=== PATIENT | female | born 1975 | race Caucasian/White ===

== ENCOUNTER → 2018-08-27 | Outpatient (CLI) | payer MEDICAID, SELFPAY ==
[2015-02-27 13:45] VITALS: BMI 48.2
[2018-08-27 18:14] LABS: Amphetamine Urine VISTA NEGATIVE (<1000 ng/mL); Barbiturate Urine VISTA NEGATIVE (< 200 ng/mL); Benzodiazepine Urine VISTA NEGATIVE (< 200 ng/mL); Cocaine Urine VISTA NEGATIVE (< 300 ng/mL); Ecstacy Urine VISTA NEGATIVE (< 500 ng/mL); Methadone Urine VISTA NEGATIVE (< 300 ng/mL); PCP Urine VISTA NEGATIVE (< 25 ng/mL); THC Urine VISTA POSITIVE (< 50 ng/mL); Vista UDS pH Range 6
== END | disposition home or self-care (01) ==
PROVIDERS: Family Provider Internal Medicine; PCP Internal Medicine; Referring Provider Psychiatry & Neurology Psychiatry; Visit Provider Psychiatry & Neurology Psychiatry
DX: F19.10 Other psychoactive substance abuse, uncomplicated (principal); Z79.899 Other long term (current) drug therapy
CPT/HCPCS: 80307

== ENCOUNTER 2020-03-09 15:17 | Emergency (ER) | payer MEDICAID, SELFPAY ==
[2020-03-09 15:18] VITALS: BP 129/94; PULSE 94; RESP 16; TEMP 36.1; O2SAT 97; BMI 42.6
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
--- NOTE | 2020-03-09 15:43 | EKG12_ITS ---
Test Reason : MEDICAL CLEARANCE Blood Pressure : / mmHG Vent. Rate : 081 BPM Atrial Rate : 081 BPM P-R Int : 124 ms QRS Dur : 078 ms QT Int : 380 ms P-R-T Axes : -03 035 006 degrees QTc Int : 441 ms Normal sinus rhythm Low voltage QRS Borderline ECG Confirmed by REUBEN CLARK, KIRILL ([id number]), editor book IRENA SYKES ([id number]) on 03/10/2020 1:52:41 PM Referred By: LIMA Confirmed By:KIRILL ALEXIS MD
--- NOTE | 2020-03-09 15:43 | RAD_ITS ---
STUDY: X-RAY CHEST REASON FOR EXAM: Female, 44 years old. Medical clearance, history of asthma. TECHNIQUE: Single AP portable view of the chest. COMPARISON: None. FINDINGS: The lungs are clear and expanded. There is no demonstrated pleural abnormality. Normal size heart. Normal mediastinum and tony. Normal visualized pulmonary arteries. Normal visualized aortic arch and descending thoracic aorta. Normal visualized thoracic spine. Normal visualized ribs, clavicles, and shoulders. There is no demonstrated abnormality of the visualized soft tissue structures of the upper abdomen. RAD/Chest 1 View (Portable) IMPRESSION: Normal x-ray examination of the chest. Electronically Signed: Laith Madsen MD at 16:52 EST , Service support ,
[2020-03-09 16:09] LABS: Amphetamine Urine VISTA NEGATIVE (<1000 ng/mL); Barbiturate Urine VISTA NEGATIVE (< 200 ng/mL); Benzodiazepine Urine VISTA NEGATIVE (< 200 ng/mL); Cocaine Urine VISTA NEGATIVE (< 300 ng/mL); Ecstacy Urine VISTA NEGATIVE (< 500 ng/mL); Methadone Urine VISTA NEGATIVE (< 300 ng/mL); PCP Urine VISTA NEGATIVE (< 25 ng/mL); THC Urine VISTA POSITIVE (< 50 ng/mL); Vista UDS pH Range 6
[2020-03-09 16:22] LABS: Anion Gap 5 (5-15); BUN 5 mg/dL (7-18); BUN/Creat Ratio 7.3 RATIO (10-20); Calcium,Total 8.8 mg/dL (8.5-10.1); Chloride 108 mmol/L (98-107); Creatinine, Serum 0.69 mg/dL (0.55-1.02); EST Glomerular Filtration Rate 99 mL/min (>60); Est Glom Filt Rate - Afr Amer 120 mL/min (>60); Estimated Creatinine Clearance 102.23 ml/min; Glucose 109 mg/dL (74-106); Potassium 3.5 mmol/L (3.5-5.1); Sodium Level 142 mmol/L (136-145)
[2020-03-09 16:24] LABS: Absolute Lymphocyte Count 1.28 X10^3/uL (0.83-4.51); Absolute Neutrophil Count 4.9 X10^3/uL (2.0-7.7); Basophil# 0.03 X10^3/uL; Basophil% 0.4 % (0-1); Eosinophil# 0.08 X10^3/uL; Eosinophils% 1.2 % (0-5); Hematocrit 48.1 % (37-47); Hemoglobin 15.7 g/dL (12.0-15.0); Lymphocyte # 1.28 X10^3/ul (4.0); Mean Corp Hgb Conc 32.6 g/dL (32-36); Mean Corpuscular Hgb 34.4 pg (27.0-32.0); Mean Corpuscular Volume 105.3 fL (81-99); Mean Platelet Vol. 9.6 fl (6.2-12.0); Monocyte# 0.37 X10^3/uL; Monocyte% 5.5 % (0-10); NRBC Flagged by Analyzer 0 % (0-5); Neutrophil # 4.94 X10^3/uL (2.7-7.7); Neutrophil % 73.6 % (47-70); Platelet Count 263 K/mm3 (150-450); RBC Distribution Width CV 14.2 % (11.6-14.6); RBC Distribution Width SD 55.3 fl (35.1-43.9); Red Blood Count 4.57 M/mm3 (4.2-5.4); White Blood Count 6.7 K/mm3 (4.4-11.0)
[2020-03-09 17:21] LABS: Probe Check PASS; Specimen Processing Control PASS
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
[2020-03-09 17:42] LABS: Acetaminophen (Tylenol) Level < 2.0 ug/mL (10.0-30.0); Salicylate 3.1 mg/dL (2.8-20.0)
[2020-03-09 17:55] VITALS: BP 138/109; PULSE 87; RESP 16
[2020-03-09 20:06] LABS: Internal QC Validated? YES +Cl - CLEAR BKGD; Pregnancy, Serum, hCG Quali. NEGATIVE Negative
--- NOTE | 2020-03-10 13:01 | CM.ED ---
Social Work Telephone call to follow up with patient. No answer. Voicemail left. Kennedy WARNER, LUIS
--- NOTE | 2020-03-10 14:20 | CM.ED ---
Social Work Telephone call received from patient. Patient reports to have attended the Behavioral Health intake appointment today at 1:00 and it went well. Patient reports plan to start program on Sunday. Patient denies any current concerns/needs. Kennedy WARNER, LUIS
== END 2020-03-09 17:55 | disposition home or self-care (01) ==
PROVIDERS: Emergency Provider Student in an Organized Health Care Education/Training Program; PCP Internal Medicine
DX: R45.851 Suicidal ideations (principal); F12.10 Cannabis abuse, uncomplicated; F32.9 Major depressive disorder, single episode, unspecified; Z91.5 Personal history of self-harm; J45.909 Unspecified asthma, uncomplicated; Z79.899 Other long term (current) drug therapy; F17.200 Nicotine dependence, unspecified, uncomplicated
CPT/HCPCS: 71045; 80048; 80307; 80320; 80329; 84703; 85025; 87635; 93005; 99285; G0480; U0002

== ENCOUNTER 2020-03-25 09:57 | Outpatient (RCR) | payer MEDICAID, SELFPAY ==
--- NOTE | 2020-03-25 09:05 | BH.SGPN.GN ---
Behaviors/Verbalizations/Mental Status: [] Eye contact is good. Motor activity is appropriate. Appearance is casual. Speech is Appropriate. Mood is anxious. Affect is congruent. Thoughts are linear and logical. No evidence of psychosis. Reviewed daily check in sheet and no reports of suicidal ideations or intent. Client Response/Progress/Benefit: [] Pt was an active participant in group discussion. This was pt's first day in the program. She shared that she entered IOP to help with depression and anxiety. Briefly discussed her recent struggles. Attentive and provided feedback to peers. No progress noted as this was pt's first day in IOP. Will continue in IOP to maintain safety, increase healthy coping, and to stabilize mood. Narrative Note: []
--- NOTE | 2020-03-25 10:00 | BH.SGPN.GN ---
Behaviors/Verbalizations/Mental Status: []Client alert and oriented, casually dressed and groomed. Eye contact good. Motor activity restless. Speech within normal limits. Affect constricted, mood anxious and dysthymic. Thoughts linear, logical, no signs of hallucinations or delusions. Client Response/Progress/Benefit: []Client was quiet during larger group discussion, but participating in small group discussion. Client contributed to the discussion of self-care and the consequences of not practicing self-care. Client defined self-care as a ?priority? in life. Group discussed consequences of not practicing self-care such as: ?downward spiral?, burnout, emotional exhaustion, and poor health. Client participated in the discussion of the common myths about self-care and participated in the discussion on debunking of these myths. Client?s group challenged the myths that self-care is too costly and it should always be fun. Client reports ?sometimes self-care means setting yourself straight.? Client seemed to benefit from increased awareness of the importance of self-care and challenging common myths that prevent practicing self-care. Will continue IOP tx to prevent decompensation, improve mood stability, and increase distress tolerance. Narrative Note: []
--- NOTE | 2020-03-29 13:27 | BH.COMM ---
Communication Note - Communication with Client Communication Note: Called in this AM stating that her ride has not been able to wake up and get her to group. Asked if we could arrange transportation. Call to [facility] transportation to arrange schedule. Unable to get her to group consistently until 04/06/20. Pt aware and will miss this week of groups including appointment with psychiatrist. Plan to start back into IOP on 04/06/20
--- NOTE | 2020-04-06 09:05 | BH.SGPN.GN ---
Behaviors/Verbalizations/Mental Status: [] Eye contact is poor. Motor activity is appropriate. Appearance is disheveled. Speech is Appropriate. Mood is depressed. Affect is flat. Thoughts are linear and logical. No evidence of psychosis. Reviewed daily check in sheet and pt reports 5/5 for suicidal thoughts and 4/5 for intent. Therapist noticed and will meet with patient. Client Response/Progress/Benefit: [] Pt was attentive during group however did not participated. She choose not to check-in with the group. Limited benefit noted. Will continue in IOP to maintain safety, increase health coping, prevent decompensation, and stabilize mood. Due to reports of SI therapist will meet with patient after the group to process and to perform risk assessment. Narrative Note: []
--- NOTE | 2020-04-06 11:07 | BH.SGPN.GN ---
Behaviors/Verbalizations/Mental Status: []Client alert and oriented, casual dressed and groomed. Eye contact good. Motor activity restless-rubbing legs. Speech within normal limits. Affect flat, mood dysthymic. Thoughts linear, logical, no signs of hallucinations or delusions. Client Response/Progress/Benefit: []Client responded well to session AEB client listening attentively to others and providing some input during group discussion on the pay offs and costs of the different communication styles. Attentive during psychoeducation on assertiveness strategies to improve communication, and client selected an assertiveness skill to practice. Client selected the skill be mindful by remembering the objective of the interaction. Client selected this skill as client shared ?I often get in arguments and I don?t know why.? Client seemed to benefit from increasing awareness of healthy strategies to improve communication. Will continue IOP tx to prevent decompensation, maintain safety, and learn healthy coping skills. Narrative Note: []
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
--- NOTE | 2020-04-06 14:41 | BH.MTP_ITS ---
[facility] Treatment Plan - Patient Information Program Physician:: Marisela Laboy Primary Therapist:: Yonny Pabon - Psychiatric Diagnoses Psychiatric Diagnoses:: Schizoaffective disorder, depressed type. anxiety disorder, NOS;. history of PTSD. Diagnosis Code(s):: (F 25.1) - Estimated LOS Estimated LOS (in weeks):: 8 Problem/Goal #1 - Problem/Goal #1 Stated Goal:: Client will increase mood stability and decrease depressive symptoms, hopelessness, and suicidal ideation due to Shizoaffective D/O through Intensive Outpatient Program. Description of Barriers: unhealthy relationship, limited coping skills, hx of non-compliance with counseling Functional Impact: Depressive symptoms, SI, and poor self-esteem are daily long- standing symptoms which impact all facets of her life. - Objectives Objective #1 Stated Objective: Client will identify and replace 2-3 negative thinking patterns that mediate feelings of hopelessness and helplessness. Interventions: Through groups and individual therapy, pt. will be provided with education on cognitive distortions, mistaken beliefs, and identifying and combating negative self-talk. Therapist will help pt. explore connection between thoughts, feelings, and actions. Discharge Criteria: Pt. will be able to identify 2-3 negative thinking patterns and be able to effectively stop, challenge, or cope with those negative thoughts. Will also show a decrease in depressive symptoms in DSM cross-cutting scales at discharge. Target Date: 05/25/20 Review Date: 04/26/20 Problem/Goal #2 - Problem/Goal #2 Stated Goal:: Stabilize anxiety level while increasing ability to function and decreasing ruminative thoughts on a daily basis through Intensive Outpatient Program. Description of Barriers: unhealthy relationship, limited coping skills, hx of non-compliance with counseling, limited support, Functional Impact: Constant rumination, worry, and fear impact confidence, communication, and overall ability to manage conflict. - Objectives Objective #1 Stated Objective: Client will learn and implement 2-3 calming skills to reduce overall anxiety and manage anxiety symptoms. Interventions: Through individual and group counseling pt. will be provided with education on anxiety and effective coping skills. Will explore more in-depth with pt. cause and triggers to anxiety as well as obstacles to overcoming anxiety. Discharge Criteria: Client will have achieved this goal when can verbalize at least 2 calming skills and implement those skills. Will also show a decrease in anxiety scales on DSM5 cross-cutting scales at discharge. Target Date: 05/26/20 Review Date: 04/26/20 Problem/Goal #3 - Problem/Goal #3 Stated Goal:: Pt will be medication compliant and notify staff of any significant changes in intensity, frequency, and severity of psychotic symptoms. Description of Barriers: unhealthy relationship and limited support increase symptoms of stress, anxiety, and depression which can exacerbate psychosis. Functional Impact: refer to above - Objectives Objective #1 Stated Objective: Pt will check in with therapist weekly to discuss medication compliant, frequency of hallucinations, sleep schedule, and any acute changes. Interventions: Will meet with pt on weekly basis to check-in regarding symptoms of psychosis. Will assess for psychosis and reality check if needed. Discharge Criteria: When pt reports medication compliance and managable symptoms of psychosis that do not impact daily functioning. Target Date: 04/26/20 Review Date: 05/26/20
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
--- NOTE | 2020-04-07 13:58 | BH.COMM ---
Communication Note - Communication with Client Communication Note: Pt reached out this AM and cancelled her appointment with psychiatry this AM. This is the second week that she has cancelled psych appointment. Due to severity of symptoms it would not be beneficial to discharge from IOP as then she would have no type of structured treatment and may decompensate further. Will continue to encourage participation.
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
--- NOTE | 2020-04-14 09:03 | BH.SGPN.GN ---
Behaviors/Verbalizations/Mental Status: []Eye contact is fair. Motor activity is appropriate. Appearance is casual.. Speech is Appropriate. Mood is depressed, affect is flat. Thoughts are linear and logical. No evidence of psychosis. Client Response/Progress/Benefit: [] Patient passive display as evidenced by her provide any feedback throughout the group process. Patient was offered an opportunity to check-in but patient declined. No progress noted given patient has not been able to attend very frequently due to transportation issues. Patient is to continue IOP level of care to decrease depression, improved daily functioning, and prevent decompensation. Narrative Note: []
--- NOTE | 2020-04-14 11:05 | BH.SGPN.GN ---
Behaviors/Verbalizations/Mental Status: []Client alert and oriented, casually dressed and groomed. Eye contact fair. Motor activity appropriate. Speech within normal limits. Affect flat, mood dysthymic and anxious. Thoughts linear, logical, no signs of hallucinations or delusions. Client Response/Progress/Benefit: []Client responded somewhat well to session, appeared to be actively listening, but declined to contribute to discussion and share her personal changes. Client listened during psychoeducation on the change process and different emotions in each stage of change. Client did not identify a change she wants to make and did not share any barriers. Client appears anxious during group which is to be expected as client is new to IOP. Appeared to benefit from listening to peers and gaining awareness. Will continue IOP tx to prevent decompensation, improve mood stability, and maintain safety. Narrative Note: []
[2020-04-14 11:43] VITALS: BP 145/94; PULSE 83
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
--- NOTE | 2020-04-14 13:02 | BH.DR.ITP ---
Initial Treatment Plan - Patient Information Visit Information: ADMISSION DATE: EXPECTED LOS: 4-6 weeks - Problems/Symptoms Problem #1:: Depression Symptom:: Sadness, crying, hopelessness, worthlessness, guilt, passive suicidal ideation with several possible plans Problem #2:: Anxiety Symptom:: Worry, panic attacks Problem #3:: longstanding psychosis
--- NOTE | 2020-04-19 10:40 | BH.COMM ---
Communication Note - Communication with Client Communication Note: Pt cancelled for IOP today due to sleeping in. Contacted her and she reports that she will be at IOP tomorrow.
--- NOTE | 2020-04-20 09:10 | BH.SGPN.GN ---
Behaviors/Verbalizations/Mental Status: [] Eye contact is poor. Motor activity is appropriate. Appearance is disheveled. Speech is Appropriate. Mood is depressed. Affect is flat. Thoughts are linear and logical. No evidence of psychosis. Reviewed daily check in sheet and pt reports 3/5 for suicidal thoughts and 3/5 for intent. This is actually improved from her scores from last week. Client Response/Progress/Benefit: [] Pt participated when prompted. Attentive. Emotion for today is anxious. Shared that her holidays were crappy however did not elaborate. Answered superficial questions from therapist however did not elaborate much. This has been her baseline in most groups as she describes herself as quiet. Limited benefited noted however was attentive and nodded her head while other members were talking. Will continue in IOP to maintain safety, prevent decompensation, increase health coping, and stabilize mood. Narrative Note: []
--- NOTE | 2020-04-20 11:10 | BH.SGPN.GN ---
Behaviors/Verbalizations/Mental Status: []Client alert and oriented, casually dressed and fairly groomed. Eye contact fair. Motor activity restless. Speech within normal limits. Affect flat. Mood anxious and depressed. Thoughts linear, logical, no signs of hallucinations or delusions. Client Response/Progress/Benefit: []Client engaged during activity and listened to group members ideas on how to cope with internal barriers that keep clients stuck from moving towards goals. Client able to identify barriers to desired reality. Client reported she wants to work on overcoming barrier of catastrophizing. Client stated she will work on overcoming this barrier by staying present and asking to help her stay in the moment. Benefited from group by identifying obstacles and solutions to desired reality. Will continue IOP tx to prevent decompensation, decrease anxiety and increase healthy coping skills. Narrative Note: []
--- NOTE | 2020-04-20 13:26 | BH.MDN_ITS ---
Multi-Disciplinary Note - Note 45-min Individual Time Started:: 10:30 Date: 04/20/20 Purpose of session/treatment goals addressed:: Purpose of the session was to work on treatment plan goals and to provide education on cognitive distortions. Eye Contact:: Poor Motor Activity:: Appropriate Appearance:: Disheveled Speech:: Appropriate Mood:: Depressed Affect:: Flat Thoughts:: Linear, Logical, No evidence of hallucinations/delusions noted Staff Interventions:: Eduction on CBT and cognitive distortions. Processed thought processes. Client Response:: Pt reported a 3/5 for suicidal thoughts and 3/5 for intent this AM in group. This is actually a reduction from previous weeks. She reports I'm getting along better with my . She discussed how they are communicating more effectively. She has her phone in her hand pretty much non- stop throughout the day even during the session. I like to have access to [place]. She will even check it during our session. She brought up some events that led to panic and depression over the weekend. In discussing her events it was very clear that she has significant catastrophizing distortions. Often going to worst case scenarios for every event which is typcially that more[place] will get angry with her and leave her. Unable to identify any coping skills to manage or slow these thoughts I don't know maybe do something else. Open to education on catastrophizing and we worked on ways to challenge these thoughts. Given handout to complete. She did not complete previous assignment. Risks/Concerns:: No risks or concerns noted. Long-standing hx of daily suicidal thoughts which she reports are currently improved. No current plan or intent. Progress Toward Goals/Plan:: Progress noted per pt report which is mainly due to increased communication and decreased conflict in relationship. Pt's self-esteem and mood is dependent on her and thier current dynamics. Reports that she is learning a lot in group dispate limited engagment and participation. Plan is to continue in IOP to maintain safety, stablize mood, and prevent decompensation. Time Stopped:: 11:10
== END 2020-04-22 23:59 ==
LOC: BHIOP 09:57
PROVIDERS: PCP Internal Medicine; Referring Provider Psychiatry & Neurology Psychiatry; Visit Provider Psychiatry & Neurology Psychiatry
DX: F25.1 Schizoaffective disorder, depressive type (principal); F41.9 Anxiety disorder, unspecified; R45.851 Suicidal ideations; Z79.899 Other long term (current) drug therapy; F17.210 Nicotine dependence, cigarettes, uncomplicated; Z72.89 Other problems related to lifestyle; F12.90 Cannabis use, unspecified, uncomplicated; Z62.810 Personal history of physical and sexual abuse in childhood; Z91.410 Personal history of adult physical and sexual abuse; J45.909 Unspecified asthma, uncomplicated
CPT/HCPCS: 90792; H0035; H2012; H2020; 90832; 90834

== ENCOUNTER 2020-04-26 09:00 | Outpatient (RCR) | payer MEDICAID, SELFPAY ==
[2020-04-23 00:37] VITALS: BP 145/94; PULSE 83
--- NOTE | 2020-04-26 09:00 | BH.SGPN.GN ---
Behaviors/Verbalizations/Mental Status: [] Eye contact is poor. Motor activity is appropriate. Appearance is disheveled. Speech is Appropriate. Mood is depressed. Affect is flat. Thoughts are linear and logical. No evidence of psychosis. Tracker notes 3/5 for suicidal thoughts and 3/5 for intent. This is pt's baseline. Client Response/Progress/Benefit: [] Pt choose not to check-in during group. Attentive. Seen nodding her head in agreement with other group member's statements and struggles. Has remarked that despite not talking she does get benefit from group support. No progress noted. Will continue in IOP to maintain safety and improve functioning. Narrative Note: []
--- NOTE | 2020-04-26 10:15 | BH.SGPN.GN ---
Behaviors/Verbalizations/Mental Status: []Client alert and oriented, casually dressed and appropriately groomed. Eye contact good. Motor activity appropriate. Speech within normal limits. Affect flat, mood depressed. Thoughts linear, logical, no signs of hallucinations or delusions. Client Response/Progress/Benefit: []Client was an passive participant AEB not contributing during discussion, however did appear to listen attentively to peers. Client appeared to listen to group identify how a negative perspective can impact mental health which included: self-fulfilling prophecy, maintain unhealthy coping, prevent progress and lead to more negative thinking. Client appeared to benefit from getting out of house to attend structured therapy program, increased socialization and improved awareness of how perspective can impact mental health. Progress could be hindered by client's limited engagement in group discussions and variable attendance. Client is to continue IOP to increase consistent use of healthy coping, improve daily functioning and prevent decompensation. Narrative Note: []
--- NOTE | 2020-04-26 12:58 | BH.COMM ---
Communication Note - Communication with Client Communication Note: Met with patient at her request. Pt had a question and was seeking reassurance. Continues to ruminate regarding her fiance getting into trouble with her psychiatrist. Provided reassurance which she reports was helpful. She states that she has been more aware of catastrophizing thoughts and feels that she is getting better at recognizing and addressing these thoughts. Reports positive weekend and improved mood. No SI, plan, or intent currently. Long-standing fleeting SI. Cooperative and smiling.
--- NOTE | 2020-04-27 14:02 | BH.COMM ---
Communication Note - Communication with Client Communication Note: Pt cancelled transportation and IOP this AM due to a panic attack. Spoke with her later on in the day and she was feeling better. Encouraged her to utilize IOP to help with anxiety in the future.
--- NOTE | 2020-05-03 09:05 | BH.SGPN.GN ---
Behaviors/Verbalizations/Mental Status: [] Eye contact is good. Motor activity is appropriate. Appearance is casual. Speech is Appropriate. Mood is depressed. Affect is flat. Thoughts are linear and logical. No evidence of psychosis. Reviewed daily check in sheet and pt was a 3/5 for suicidal thoughts and 3/5 for intent. This is baseline for pt and improved since starting IOP. Client Response/Progress/Benefit: [] Pt did not participate in group discussion and choose not to check-in. Daily symptom tracker notes 5/5 for anxiety, depression, and anger which is baseline. Pt was attentive during the entire group and appeared especially interested in discussion on gaslighting in relationships AEB head nodding and sitting on edge of seat as peers discussed. Pt is not very verbal in IOP however does report to be paying attention. Benefits from support and listening to others discuss skills and topics. Will continue in IOP to maintain safety, increase healthy coping, and prevent decompensation. Narrative Note: []
--- NOTE | 2020-05-03 10:10 | BH.SGPN.GN ---
Behaviors/Verbalizations/Mental Status: []Client alert and orient. Appearance casual and appropriately groomed. Speech an appropriate rate and tone. Motor activity restless. Mood euthymic, affect congruent. No evidence of delusion or hallucinations.? Client Response/Progress/Benefit: []Client responded well to session, attentive and contributing to discussion. Group discussed potential barriers to communication including: yelling, name-calling, unmanaged emotions, facial expressions, and shutting down. Client shared personal examples of how ?catastrophizing? and other negative thoughts have impacted client?s ability to communicate. Attentive during psychoeducation on the four communication styles. Client self-reports that she is a passive communicator which leads to client not getting her needs met and feeling depressed. Progress noted in increased insight into personal communication styles and barriers. Client to continue in IOP tx to prevent decompensation, maintain safety, and improve emotional regulation skills. Narrative Note: []
--- NOTE | 2020-05-05 09:00 | BH.SGPN.GN ---
Behaviors/Verbalizations/Mental Status: []Client alert and oriented, neatly dressed and groomed. Eye contact fair. Motor activity appropriate. Speech within normal limits. Affect flat, mood anxious. Thoughts linear, logical, no signs of hallucinations or delusions. Reviewed client?s symptom tracker. Client's self-report for SI was within client's baseline. Does not present as an imminent threat to self. Client Response/Progress/Benefit: []Client responded somewhat well to session, participating when prompted, but appeared anxious and distracted. Client reports feeling anxious this morning. Client's check-in was very brief and client struggled to identify positives at first. Client reports a positive is that her thoughts are brighter due to a stressor being removed from client's plate. Client unable to identify coping skills she has been using to manage symptoms. Appeared to benefit from socializing and connecting with peers. Will continue IOP tx to prevent decompensation and increase emotional regulation skills. Narrative Note: []
--- NOTE | 2020-05-05 10:05 | BH.SGPN.GN ---
Behaviors/Verbalizations/Mental Status: [] Eye contact is good. Motor activity is appropriate. Appearance is casual. Speech is Appropriate. Mood is depressed. Affect is flat. Thoughts are linear and logical. No evidence of psychosis. Client Response/Progress/Benefit: [] Pt was attentive during psychoeducation however did not participate in group discussions. Group was primarily educational and introduced and gave examples of the 10 cognitive distortions. Pt choose not to share personal experiences for certain cognitive distortions, however was attentive while peers shared. Benefited from education and increased awareness of cognitive distortions and role that they play in negative thoughts and emotions. Will continue in IOP to maintain safety, increase healthy coping skills, and prevent decompensation. Narrative Note: []
--- NOTE | 2020-05-05 12:24 | PCM.BH.PN_ITS ---
Progress Note Progress Note: History of Present Illness/Interim History: [] Patient is a 45-year-old single female with a history of schizoaffective disorder, PTSD and depression who is seen in follow-up at the [facility] behavioral health IOP program. I last saw the patient several weeks ago. The patient at that ti me was placed on Paxil 10 mg p.o. daily for her depression as she had recently stopped her Trintellex. The patient says that she feels better in the past week and her depression and anxiety are becoming less prevalent. She feels the IOP is really helping her learn skills to help manage her issues. Her boyfriend and her have been getting along better lately also. She has had passive suicidal ideation only in the last week or so but it has been fleeting. She denies any suicidal ideation for the past 3 days. She still has her same baseline hallucinations but these are not bothering her. Her panic attacks are less frequent. She still has some [place] significant anxiety and occasional panic attacks however. Current Psychiatric Medications: [] Klonopin 1 mg p.o. 3 times a day (x3 to 4 ye ars); Risperdal 3 mg p.o. twice a day (3 to 4 years); Paxil 10 mg p.o. daily (x3 weeks now) Mental Status Examination: [] The patient is a 45-year-old female who appears normal for stated age and is seen wearing a mask due to the pandemic. She is casually dressed and groomed with good hygiene. She looks away often when discussing certain topics but eye contact is otherwise fair. Speech is normal rate and rhythm and fluent with no pressure. Mood is depressed. Affect is constricted but not flat. She was not tearful. Thought process is goal- directed and organized. Thought content: There is evidence of longstanding baseline auditory and visual hallucinations. There is evidence of fleeting, passive suicidal ideation but no active suicidal ideation. There is no evidence of homicidal ideation or other. Judgment is intact. Insight is fair. Impulsivity is moderate to high. Diagnoses: [] [place] I: [] Schizoaffective disorder, depressed type (F 25.1); anxiety disorder, NOS; history of PTSD [place] II: [] Strong cluster B traits [place] III: [] Negative [place] IV:[]] Primary support issues Plan: [] The patient will continue the IOP program at [facility] as the structure, support, education, individual and group therapy will hopefully prevent worsening of the patient's symptoms which might require hospitalization. The patient felt safe during the interview and if it anytime she does not feel safe she will let us know or go to the emergency room. The risks, options, possible complications and side effects of the medications were again discussed with the patient and she understands and accepts these. The patient agrees to increase her Paxil to 20 mg p.o. daily. She has not felt any negative side effects in mood or other and is requesting to increase the dose. Prescription was sent in for Paxil 20 mg, 1 p.o. daily, #30 with 1 refill. The patient will continue to follow-up with her outpatient psychiatric and medical providers.
--- NOTE | 2020-05-05 15:20 | BH.TPR ---
Treatment Plan Review Date of Admission:: 03/25/20 Date of Treatment Plan Review:: 05/05/20 Admitting Diagnoses:: Schizoaffective Disorder, depressed type Current Diagnoses:: Same, F 25.1 Patient's Response to Treatment:: Pt completed DSM cross-cutting scales and her responses were compared to her admission scores. Overal she reports a 23% reduction in symptoms since starting IOP which is surprising as pt has not been consistent with group attendance. Pt has missed several scheduled IOP sessions for a number of reasons. Limited engagement in group discussions (often choosing not to share in process group) however reports that she benefits from peer support and psychoeducation. More engaged in individual sessions and has reported increased awareness of cognitive distortions and strategies to minimize thier impact on her emotions and behaviors. Problem #1 Problem Name:: Client will increase mood stability and decrease depressive symptoms Status of Goals:: Making progress. Has identifed 2 negative thinking patterns (catastrophizing and absolute thinking) and reports increase ability to reframe or stop herself. According to DSM 5 scales pt reports 25% reduction in Depression since starting IOP. Overall daily symptom trackers notes gradual decrease in severity and intensity of suicidal thoughts. Team Recommendations:: Continue with education on identifying negative thoughts and reframing. Encourage increased attendance. Problem #2 Problem Name:: Stabilize anxiety level while increasing ability to function Status of Goals:: Limited progress here as pt has not been able to identify and consistenly utilize calming skills. Has cancelled IOP on several occasions due to panic attacks. Often seeks reassurance for anxiety rather than utilizing internal skills. This is indicated in her DSM scores as they have remained the same since admission. Team Recommendations:: Encourage increased attendance as this is primary reason for limited progress in this area. Inconsistent attendance impacts therapists ability to meet with pt individually and she misses important group topics. Problem #3 Problem Name:: Psychosis Status of Goals:: According to DSM 5 scores her hallucinations and delusions have decreased 25% since staring IOP. Remains medication compliant. Team Recommendations:: Encourage increased participation and attendance.
--- NOTE | 2020-05-07 10:53 | BH.COMM ---
Communication Note - Communication with Client Communication Note: Cancelled IOP today. No specific reason given
--- NOTE | 2020-05-10 10:53 | BH.COMM ---
Communication Note - Communication with Client Communication Note: Cancelled IOP again today. Stating that she had a panic attacks. Inconsistent attendance.
--- NOTE | 2020-05-11 09:00 | BH.COMM ---
Communication Note - Communication with Client Communication Note: Cancelled IOP again today. No reason given.
--- NOTE | 2020-05-14 08:53 | BH.COMM ---
Communication Note - Communication with Client Communication Note: Pt cancelled IOP again today. Has not been to IOP in over a week. Next week is scheduled to be here last week. Reached out to discuss obstacles and if she desire to discharge from IOP.
--- NOTE | 2020-05-17 08:32 | BH.COMM ---
Communication Note - Communication with Client Communication Note: Cancelled IOP again through email with no reason. Has not been to IOP in close to 2 weeks. Has not responded to attempted to connect to discuss reasons for cancellations and obtacles for treatment. Plan is to discharge
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
== END 2020-05-17 14:00 | disposition home or self-care (01) ==
LOC: BHIOP 09:00
PROVIDERS: PCP Internal Medicine; Referring Provider Psychiatry & Neurology Psychiatry; Visit Provider Psychiatry & Neurology Psychiatry
DX: F25.1 Schizoaffective disorder, depressive type (principal); F41.9 Anxiety disorder, unspecified; F43.10 Post-traumatic stress disorder, unspecified
CPT/HCPCS: 99213; H2012

== ENCOUNTER → 2021-12-22 | Outpatient (CLI) | payer MEDICAID, SELFPAY ==
[2021-12-22 13:28] LABS: Creatinine, Serum 0.79 mg/dL (0.55-1.02); EST Glomerular Filtration Rate 83 mL/min (>60); Est Glom Filt Rate - Afr Amer 101 mL/min (>60); Prolactin 30.9 ng/mL; Thyroid Stim Hormone (TSH) 3.86 uIU/mL (0.358-3.74)
== END | disposition home or self-care (01) ==
PROVIDERS: PCP Internal Medicine; Referring Provider Psychiatry & Neurology Psychiatry; Visit Provider Psychiatry & Neurology Psychiatry
DX: Z79.899 Other long term (current) drug therapy (principal)
CPT/HCPCS: 36415; 80178; 82565; 83036; 84146; 84443